=== PATIENT | female | born 1995 | race Two or more races ===

== ENCOUNTER 2024-11-19 14:30 | Outpatient (RCR) | payer MEDICAID, SELFPAY ==
--- NOTE | 2024-11-15 15:45 | PTNOTE_ITS ---
PT OP Initial Eval Patient Information Outpatient Physical Therapy Treatment Date: 11/15/24 Visit Reasons: back pain Medical Diagnosis: M47.896 Treatment Dx #1: Back Pain Treatment Dx #2: Back Pain Start of Care: 11/15/24 Smoking Status Smoking Status: Never smoker Initial Assessment Subjective: Pt is a 29 y/o female reports back pain with right LE pain down to her foot since her fall at [facility] several months ago. Pt's most MRI is negative, however, is pending a new MRI and nerve conduction test. Pt has limitation with sitting, standing, chores, self care, lifting, walking, and performing recreational activities. Pt further mention she did a bout of physical therapy after her fall at [facility] which increase her pain. Objective: L/S AROM: all motions are 75% with pain in all plane Hip PROM: all motions are WFL Hip MMTs: grossly 3/5 Special Test (+) SLR (+) slump Assessment: Pt demonstrate back pain with mobility deficits leading to difficulty with ADLs. Pt will attempt physical therapy if pain persist Pt will be refer back to provider. Short Term and Marketing Services Manager Goals 1) Increase L/S AROM WNL in 6 wks to be able to perform chores 2) Decrease back pain to 2/10 in 6 wks to be able to sit and stand more than 30 mins 3) Increase core strength WFL in 6 wks to be able to perform recreational activities 4) Increase hip MMTs grossly to 4-/5 in 6 wks to be able to walk more than 30 mins 5) Indep with HEP Treatment Plan 1) Manual Therapy 2) Therapeutic Activities 3) Therapeutic Exercises 4) Modalities (ice, heat, traction) Frequency and Duration: 2 x wk for 6 wks Certification Dates: 11/15/24 to 02/13/25 Procedure Charges OP PT Eval Mod Complex 30 minutes: Yes
--- NOTE | 2024-11-19 16:21 | PT.ODAYNRPT ---
PT Outpatient Daily Note OP Daily Note Outpatient Physical Therapy Treatment Date: 11/19/24 Visit Reasons: back pain Subjective: Pt reports 10/29 LBP today. Objective: Please see flow sheet for ther ex list. Assessment: Pt tolerated interventions with minimal soreness but no pain. Plan: Assess response to treatment. Length of Time (minutes) of Treatment: 30 Minutes Procedure Charges Therapeutic Exercise 30 minutes: Yes
--- NOTE | 2024-11-26 15:27 | PT.ODS1RPT ---
PT OP Progress/Discharge Note Date of Service: 11/26/24 Patient Information Visit Reasons: back pain Service Discharge Date: 11/26/24 Status Assessment: Pt has been seen for 2 visits (eval + 1 visit). Pt last treated on 11/19/24. Pt no showed 11/26/24 appt. At this time Pt will be d/c from care due to auth 11/28/24. Pt did not meet set goals in therapy; thank you for your referrals
== END 2024-11-19 23:59 | disposition home or self-care (01) ==
LOC: CPTX 14:30
PROVIDERS: PCP Nurse Practitioner; Referring Provider Nurse Practitioner; Visit Provider Nurse Practitioner
DX: M79.604 Pain in right leg (principal); M54.9 Dorsalgia, unspecified; M47.896 Other spondylosis, lumbar region
CPT/HCPCS: 97110; 97162

== ENCOUNTER 2025-03-12 23:43 | Emergency (ER) | payer MEDICAID, SELFPAY ==
[2025-03-12 23:43] VITALS: BMI 33.0
[2025-03-12 23:52] VITALS: BP 136/85; PULSE 74; RESP 18; TEMP 36.9; O2SAT 96
--- NOTE | 2025-03-13 00:47 | PD.EDRME ---
Rapid Medical Screening Exam RME Arrival date/time: 03/12/25 23:43 Chief Complaint: Abdominal Pain Time Seen by Provider: 03/13/25 00:30 Vital signs: Vital Signs Temperature 98.5 F 03/12/25 23:52 Pulse Rate 74 03/12/25 23:52 Respiratory Rate 18 03/12/25 23:52 Blood Pressure 136/85 H 03/12/25 23:52 Pulse Oximetry (%) 96 03/12/25 23:52 Oxygen Delivery Method Room Air 03/12/25 23:52 Vital signs reviewed by provider: Yes RME Narrative: 29-year-old female presents to the ED with a complaint of right flank and right sided low back pain for the past 2 to 3 days. She has an old injury to her low back approximately 1 year ago. Pain is similar to previous injury. She denies any fever or chills, nausea or vomiting, diarrhea or abdominal pain. Pain radiates to the right flank area. I have greeted and performed a focused initial assessment of this patient. A comprehensive ED assessment and evaluation of the patient, analysis of all test results, and completion of the medical decision making process will be conducted by additional ED providers.
[2025-03-13 01:08] LABS: Collection Type, Urine Clean Catch
[2025-03-13 01:21] LABS: Bacteria,Urine Rare; Bilirubin,Urine Negative (Negative); Blood,Urine 2+ (Negative); Clarity,Urine Turbid (Clear/Hazy); Color,Urine Yellow (Lt Yel-Yel); Glucose, Urine Negative (Negative); Ketones,Urine Negative (Negative); Leukocyte Esterase,Urine Positive (Negative); Nitrite,Urine Negative (Negative); Protein,Urine Negative (Neg - Trace); RBC,Urine 76 /hpf (0-3); Specific Gravity,Urine 1.023 (1.001-1.035); Squamous Epithelial Cell,Urine 25 /hpf (0-5); Urobilinogen,Urine Negative mg/dL (0.0-1.0); WBC,Urine 15 /hpf (0-5)
[2025-03-13 01:23] LABS: HCG Qualitative,Urine Negative
[2025-03-13] MEDS: KETOROLAC INJ 60 MG/2 ML VIAL 30 MG IM (01:26)
[2025-03-13 01:45] LABS: Basophils % (Auto) 0 % (0-2.5); Eosinophils # (Auto) 0.1 Thou/mm3 (0.0-0.5); Eosinophils % (Auto) 1 % (0-10); Hemoglobin 13.6 g/dL (12.0-16.0); Immature Granulocytes % (Auto) 0 % (0-0); Immature Granulocytes Auto 0.02 Thou/mm3 (0.00-0.00); Lymphocytes # (Auto) 2.2 Thou/mm3 (1.0-4.8); Lymphocytes % (Auto) 24 % (10-50); Mean Corpuscular Hemoglobin 27.5 pg (25.0-35.0); Mean Corpuscular Volume 81 fL (80-100); Monocytes # (Auto) 0.5 Thou/mm3 (0.0-0.8); Monocytes % (Auto) 5 % (0-12); Neutrophils # (Auto) 6.4 Thou/mm3 (1.8-7.7); Neutrophils % (Auto) 69 % (37-80); Nucleated Red Blood Cell % 0 /100 WBC (0); Platelet Count 324 Thou/mm3 (140-440); RDW Standard Deviation 38.3 fL (36.4-46.3); Red Blood Count 4.94 Miln/mm3 (4.00-5.20); White Blood Count 9.2 Thou/mm3 (3.6-11.0)
[2025-03-13 02:07] LABS: Alanine Aminotransferase 26 U/L (10-49); Albumin, Serum 4.3 gm/dL (3.5-5.0); Albumin/Globulin Ratio 1.3 (1.2-2.2); Alkaline Phosphatase 74 U/L (46-116); Anion Gap 9 (7-16); Aspartate Amino Transferase 22 U/L (0-34); BUN/Creatinine Ratio 10 Ratio (12-20); Bilirubin,Total 0.7 mg/dL (0.3-1.2); Blood Urea Nitrogen 9 mg/dL (9-23); Calcium 9.1 mg/dL (8.3-10.6); Calcium (Corrected) 9.1 mg/dL (8.5-10.1); Carbon Dioxide 30.1 mMol/L (20.0-31.0); Chloride 106 mMol/L (98-107); Creatinine (Component) 0.9 mg/dL (0.6-1.3); Globulin 3.4 gm/dL (2.3-3.5); Glucose 157 mg/dL (74-106); Osmolality,Calculated 290 (275-295); Potassium 3.5 mMol/L (3.4-5.1); Sodium 145 mMol/L (136-145); Total Protein 7.7 gm/dL (5.7-8.2); eGFR > 60 See Note
[2025-03-13 05:19] VITALS: BP 123/83; PULSE 68; RESP 16; TEMP 36.7; O2SAT 97
--- NOTE | 2025-03-13 05:46 | EDNOTE_ITS ---
ED General RME/HPI General Chief complaint: Abdominal Pain Stated complaint: RIGHT LOWER BACK PAIN Time Seen by Provider: 03/13/25 00:30 Arrival date/time: 03/12/25 23:43 RME / HPI RME / HPI narrative: 29-year-old female presents to the ED with a complaint of right flank and right sided low back pain for the past 2 to 3 days. She has an old injury to her low back approximately 1 year ago. Pain is similar to previous injury. She denies any fever or chills, nausea or vomiting, diarrhea or abdominal pain. Pain radiates to the right flank area. I have greeted and performed a focused initial assessment of this patient. A comprehensive ED assessment and evaluation of the patient, analysis of all test results, and completion of the medical decision making process will be conducted by additional ED providers. Related Data Previous Rx's ?Medication ?Instructions ?Recorded ibuprofen 800 mg tablet 800 mg PO Q8H PRN pain #20 t abs 12/09/18 promethazine-DM 6.25 mg-15 mg/5 mL 5 ml PO Q6H PRN cou gh #150 mL 12/09/18 oral syrup naproxen 250 mg tablet 250 mg PO BID PRN pain #20 t abs 11/02/23 meloxicam 15 mg tablet 15 mg PO QDAY #10 tabs 03/13 sulfamethoxazole 800 1 tab PO BID #14 tabs mg-trimethoprim 160 mg tablet (Bactrim DS) Allergies Allergy/AdvReac Type Severity Reaction Status Date / Time No Known Allergies Allergy Verified 11/02/23 17:49 Course Orders Category Date Time Status NPO STAT Care 03/13/25 00:50 Active CBC Stat Lab 03/13/25 01:23 Completed Comprehensive Metabolic Panel Stat Lab 03/13/25 01:23 Completed HCG Qualitative,Urine Stat Lab 03/13/25 01:02 Completed Urinalysis Stat Lab 03/13/25 01:02 Completed Urine Culture Stat Lab 03/13/25 01:02 Received Ketorolac Inj [Toradol Inj] Med 03/13/25 00:49 Discontinued 30 mg IM X1 ONE Vital Signs Vital signs: Vital Signs Temperature 98.5 F 03/12/25 23:52 Pulse Rate 74 03/12/25 23:52 Respiratory Rate 18 03/12/25 23:52 Blood Pressure 136/85 H 03/12/25 23:52 Pulse Oximetry (%) 96 03/12/25 23:52 Oxygen Delivery Method Room Air 03/12/25 23:52 Discharge Plan Plan Patient Disposition: HOME (Self Care) Discharge Disposition comment: Stable and improved Prescriptions/Referrals Prescriptions/Med Rec: New sulfamethoxazole-trimethoprim [Bactrim DS] 800-160 mg tablet 1 tab PO BID Qty: 14 0RF meloxicam 15 mg tablet 15 mg PO QDAY Qty: 10 0RF No Action promethazine-DM 6.25-15 mg/5 mL syrup 5 ml PO Q6H PRN (Reason: cough) Qty: 150 0RF ibuprofen 800 mg tablet 800 mg PO Q8H PRN (Reason: pain) Qty: 20 0RF naproxen 250 mg tablet 250 mg PO BID PRN (Reason: pain) Qty: 20 0RF Referrals: No Primary/Family,Physician [Primary Care Provider] - In 1 week Problem List Clinical Impression: Back pain, UTI (urinary tract infection), Hematuria Impression comment: The right sided back pain associated with the hematuria/UTI could be a result of a kidney stone. Due to you are opting out of a CT of the abdomen and pelvis to rule out a kidney stone, It is advised if you develop any new or worsening symptoms, to return to the emergency room as soon as possible. Patient/Caregiver Discharge Instructions Education Materials: ED Back Pain (Acute or Chronic), ED Hematuria, ED CYSTITIS Female Adult Additional Instructions: Due to you opting out of a CT of the abdomen and pelvis to rule out a kidney stone, It is advised if you develop any new or worsening symptoms, to return to the emergency room as soon as possible. Follow-up with your primary care physician in 24 to 48 hours. Return to the ED for any new or worsening symptoms. Print Language: Cambodian Stand Alone Forms: Genny Award Info., Patient Portal Info Letter PA/ANCILLARY SERVICES MANAGER THERAPY Supervising Physician PA/ANCILLARY SERVICES MANAGER THERAPY Supervising Physician: Dr. Ponce [facility] Narrative MDM hospital course: Recommended CT of the abdomen and pelvis to rule out renal calculi due to hematuria, however patient opted out of this test stating she just wants to be discharged home. She was advised if she develops any new or worsening symptoms she is to return to the emergency room immediately. Clinical Information Provided by patient Medication Administration(s) Medication Administration History Discontinued Medications Ketorolac Tromethamine (Ketorolac Inj 60 Mg/2 Ml Vial) 30 mg IM X1 ONE Stop: 03/13/25 00:50 Last Admin: 03/13/25 01:26 Dose: 30 mg Documented By: ZHANG
== END 2025-03-13 05:59 | disposition home or self-care (01) ==
PROVIDERS: Physician Assistant; Emergency Provider Emergency Medicine
DX: N39.0 Urinary tract infection, site not specified (principal); R31.9 Hematuria, unspecified
CPT/HCPCS: 36415; 80053; 81001; 81025; 85025; 87077; 87086; 87186; 96372; 99283; J1885